=== PATIENT | male | born 1975 | race Hispanic/Latino ===

== ENCOUNTER 2019-12-12 19:09 | Emergency (ER) | payer SELFPAY ==
[2019-12-12] MEDS ORDERED: Lidocaine 1% 20 ML MDV ONE (19:24)
[2019-12-12] MEDS ORDERED: Sulfameth/Trimethoprim DS 800-160mg TAB ONE (20:05)
[2019-12-12] MEDS ORDERED: traMADol HCl 50 MG TAB ONE ×2 (20:05)
== END 2019-12-12 20:09 | disposition home or self-care (01) ==
LOC: MADERS 19:09
DX: L02.412 Cutaneous abscess of left axilla (principal)
CPT/HCPCS: 10060; J2001